=== PATIENT | female | born 1990 | race African-American/Black ===

== ENCOUNTER 2017-09-22 06:28 | Emergency (ER) | payer BC ==
[~2017-09-22] VITALS: Ht 167.6 cm; Wt 89.8 kg
[~2017-09-22 06:28] MED LIST: TRINESSA1 EACH PO
[2017-09-22] MEDS ORDERED: KEFLEX500 M1 PO (06:37)
[2017-09-22 07:13] LABS: ABSOLUTE NEUTROPHILS 2.3 thou/uL (1.4-8.2); BASOPHILS 0.3 % (0.0-2.0); EOSINOPHILS 0.9 % (0.0-3.0); HEMOGLOBIN 12.8 gm/dL (12.0-15.0); LYMPHOCYTES 34.5 % (24.0-44.0); MCH 29.4 pg (26.0-34.0); MCHC 33.7 g/dL (28.0-37.0); MCV 87.1 fL (80.0-100.0); MONOCYTES 9.9 % (1.0-8.0); PLATELET COUNT 197 thou/uL (150-400); POLYS 54.4 % (36.0-66.0); RBC 4.36 mil/uL (4.20-5.00); RDW 13.2 % (10.5-14.5); WBC 4.2 thou/uL (4.0-11.0)
[2017-09-22 07:17] LABS: CALCIUM 9.5 mg/dL (8.5-10.1); CREATININE 0.8 mg/dL (0.6-1.0); POTASSIUM 3.7 mmol/L (3.5-5.1)
[2017-09-22] MEDS ORDERED: MAGIC MOUTHWASH SW&SWALLOW (09:15)
[2017-09-22 09:40] VITALS: BP 85/61
== END 2017-09-22 09:41 | disposition home or self-care (01) ==
LOC: ER 06:28
PROVIDERS: Emergency Medicine
DX: K05.10 Chronic gingivitis, plaque induced (principal); K12.1 Other forms of stomatitis